=== PATIENT | female | born 1955 | race Caucasian/White ===

== ENCOUNTER 2016-09-01 17:25 | Emergency (ER) | payer MEDICARE, OTHER ==
--- NOTE | 2016-09-01 17:52 | ED ---
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 We did discuss multiple risk factors for things with smoking she denies any cough or phlegm production fevers chills or sweats she was taking aspirin daily for years she states because a chronic left-sided headache. She states she was never CAT scan she is currently seeing a neurologist getting worked up all over. MD Complaint: chest pain - Related Data Home Medications Medication Instructions Recorded Confirmed risperiDONE [risperiDONE] 0.5 mg PO HS 12/17/15 09/01/16 Ascorbic Acid [Vitamin C] 500 mg PO DAILY 09/01/16 09/01/16 Baclofen [Lioresal] 10 mg PO BID 09/01/16 09/01/16 Cholecalciferol [Vitamin D3] 1,000 unit PO DAILY 09/01/16 09/01/16 Glucosamine Sulfate 500 mg PO DAILY 09/01/16 09/01/16 Lutein 10 mg PO DAILY 09/01/16 09/01/16 Multivit-Min/Fe Fum/FA/Vit K 1 cap PO DAILY 09/01/16 09/01/16 [Women's Multivatimin] [place]-3 Fatty Acids/Fish Oil [Fish 1 cap PO DAILY 09/01/16 09/01/16 Oil 1,000 mg Softgel] PARoxetine HCL 30 mg PO HS 09/01/16 09/01/16 Topiramate [Topamax] 25 mg PO BID 09/01/16 09/01/16 Vitamin B Complex 1 cap PO DAILY 09/01/16 09/01/16 Previous Rx's Medication Instructions Recorded predniSONE 20 mg PO BID #10 tab 09/01/16 Allergies Allergy/AdvReac Type Severity Reaction Status Date / Time Penicillins Allergy Rash/Hives Verified 09/01/16 17:51 Review of Systems ROS Statement: Those systems with pertinent positive or pertinent negative responses have been documented in the HPI. ROS Other: All systems not noted in ROS Statement are negative. EKG Findings - EKG Results: EKG: interpreted by ADRIA, sinus rhythm (Sinus rhythm a rate of 59 MN interval 142 QRS duration 88 daily since QTC of 400/396 sinus bradycardia no acute ST-T wave changes. Some artifact is present) Past Medical History Past Medical History: COPD History of Any Multi-Drug Resistant Organisms: None Reported Past Surgical History: Appendectomy, Hysterectomy Past Psychological History: Bipolar Smoking Status: Current every day smoker Past Alcohol Use History: None Reported Past Drug Use History: None Reported General Exam - General Exam Comments Initial Comments: This is a well-developed well-nourished awake alert oriented 3 female Limitations: no limitations General appearance: alert, in no apparent distress Head exam: Present: atraumatic, normocephalic, normal inspection Eye exam: Present: normal appearance, PERRL, EOMI. Absent: scleral icterus, conjunctival injection, periorbital swelling ENT exam: Present: normal exam, mucous membranes moist Neck exam: Present: normal inspection. Absent: tenderness, meningismus, lymphadenopathy Respiratory exam: Present: normal lung sounds bilaterally, chest wall tenderness (Some reproducible tennis palpation along the mid left sternal costal border). Absent: respiratory distress, wheezes, rales, rhonchi, stridor Cardiovascular Exam: Present: regular rate, normal rhythm, normal heart sounds. Absent: systolic murmur, diastolic murmur, rubs, gallop, clicks GI/Abdominal exam: Present: soft, normal bowel sounds. Absent: distended, tenderness, guarding, rebound, rigid Extremities exam: Present: normal inspection, full ROM, normal capillary refill. Absent: tenderness, pedal edema, joint swelling, calf tenderness Back exam: Present: normal inspection Neurological exam: Present: alert, oriented X3, CN II-XII intact Psychiatric exam: Present: normal affect, normal mood Skin exam: Present: warm, dry, intact, normal color. Absent: rash Course Vital Signs 09/01/16 09/01/16 09/01/16 17:30 17:47 17:48 Temperature 98 F Pulse Rate 73 Pulse Rate [ 59 L [employer] ] Respiratory 16 Rate Blood Pressure 92/53 119/66 O2 Sat by Pulse 95 Oximetry 09/01/16 09/01/16 17:52 18:44 Temperature 97.8 F Pulse Rate 53 L Pulse Rate [ [employer] ] Respiratory 18 16 Rate Blood Pressure 106/69 O2 Sat by Pulse 97 Oximetry Chest Pain MDM - MDM I did review the imaging reports and viewed the films x-ray of the chest as negative CT the brain is negative for acute findings patient is feeling improved the presentation is consistent with chest wall pain. I did have a long discussion with the patient lives seen 3.2 minutes regarding smoking cessation and need to continue output she stated earlier that she would stop smoking. She is a follow-up with her doctor return when necessary we'll place a short course of steroids for the inflammation she sustained way from nonsteroidals at this point Disposition Clinical Impression: Chest wall syndrome, Costalchondritis, Smoking Disposition: HOME SELF-CARE Condition: Good Instructions: Costochondritis (ED), How to Stop Smoking (ED) Prescriptions: predniSONE 20 mg PO BID #10 tab
[2016-09-01 17:57] LABS: Basophils # (A) 0.1 k/uL (0-0.2); Basophils % (A) 1 %; CH 30.9; CHCM 32.5; Eosinophils # (A) 0.2 k/uL (0-0.7); Eosinophils % (A) 2 %; HCT 43.1 % (34.0-46.0); HDW 2.54; HGB 13.9 gm/dL (11.4-16.0); Luc # (Auto) 0.18; Luc % (Auto) 1; Lymphocytes # (A) 4.1 k/uL (1.0-4.8); Lymphocytes % (A) 31 %; MCH 30.7 pg (25.0-35.0); MCHC 32.2 g/dL (31.0-37.0); MCV 95.6 fL (80.0-100.0); Mean Platelet Volume 7.8; Monocytes # (A) 0.6 k/uL (0-1.0); Monocytes % (A) 4 %; Neutrophils % (A) 61 %; RBC 4.51 m/uL (3.80-5.40); RDW 13.5 % (11.5-15.5); WBC 13.1 k/uL (3.8-10.6); WBC (Perox) 13.59
[2016-09-01 18:04] LABS: Partial Thromboplastin Time 24.2 sec (22.0-30.0); Prothrombin Time 10.1 sec (9.0-12.0)
[2016-09-01 18:07] LABS: ALT 38 U/L (9-52); AST 23 U/L (14-36); Alkaline Phosphatase 60 U/L (38-126); Amylase 74 U/L (30-110); Anion Gap 7 mmol/L; Blood Urea Nitrogen 13 mg/dL (7-17); Calcium 9.8 mg/dL (8.4-10.2); Carbon Dioxide 27 mmol/L (22-30); Chloride 111 mmol/L (98-107); Glucose 104 mg/dL (74-99); Magnesium 1.7 mg/dL (1.6-2.3); Non-African American GFR(MDRD) >60 (>60 ml/min/1.73 sqM); Potassium 4.4 mmol/L (3.5-5.1); Sodium 145 mmol/L (137-145); Total Bilirubin 0.2 mg/dL (0.2-1.3); Total Protein 6.8 g/dL (6.3-8.2)
[2016-09-01 18:14] LABS: Creatine Kinase 35 U/L (30-135)
[2016-09-01 18:27] LABS: Creatine Kinase MB 0.4 ng/mL (0.0-2.4); Troponin I <0.012 ng/mL (0.000-0.034)
--- NOTE | 2016-09-01 18:40 | CT ---
EXAMINATION TYPE: CT brain wo con DATE OF EXAM: 09/01/2016 6:09 PM COMPARISON: NONE HISTORY: Left sided headache with dizziness. CT DLP: 1024.00 mGycm Automated exposure control for dose reduction was used. FINDINGS: The ventricles and sulci are normal for age. There is no mass effect or midline shift. There is no si gn of intracranial hemorrhage. The calvarium is intact. IMPRESSION: Negative unenhanced head CT scan.
--- NOTE | 2016-09-01 18:46 | XR ---
EXAMINATION TYPE: XR chest 2V DATE OF EXAM: 09/01/2016 6:09 PM COMPARISON: 10/28/2015 HISTORY: Chest pain TECHNIQUE: Frontal and lateral views of the chest are obtained. FINDINGS: Heart and mediastinum are normal. Lungs are clear of infiltrate. There is no heart failure . There are no hilar masses. There are chest leads. Bony thorax appears intact. IMPRESSION: No active cardiopulmonary disease. No change.
[2016-09-01 18:47] VITALS: BP 106/69; PULSE 53; RESP 16; TEMP 97.8
== END 2016-09-01 19:01 | disposition home or self-care (01) ==
LOC: EC 17:25
DX: R07.1 Chest pain on breathing (principal); M94.0 Chondrocostal junction syndrome [Tietze]; J44.9 Chronic obstructive pulmonary disease, unspecified; F17.200 Nicotine dependence, unspecified, uncomplicated; Z79.899 Other long term (current) drug therapy; Z88.0 Allergy status to penicillin
CPT/HCPCS: 36415; 70450; 71020; 80053; 82150; 82550; 82553; 83690; 83735; 83880; 84484; 85025; 85610; 85730; 93005; 99285

== ENCOUNTER 2017-09-17 18:19 | Observation (INO) | payer MEDICARE, OTHER ==
--- NOTE | 2017-09-17 18:37 | ED ---
General Adult HPI - General Chief complaint: Chest Pain Stated complaint: Chest pain Time Seen by Provider: 09/17/17 18:30 Source: patient, RN notes reviewed, old records reviewed Mode of arrival: wheelchair Limitations: no limitations - History of Present Illness Initial comments: 61-year-old female presents for evaluation of chest pain. Patient has had intermittent chest pain for the past one week. It has been worse over the past 2 days. Pain is worse with exertion, she describes it as a dull substernal pain. Denies sharp pain. She does also have an associated pain between her scapula. Patient denies nausea or vomiting. Denies abdominal pain. Denies significant shortness of breath. Denies cough or fever. She does state that approximately 2 weeks ago she had a flulike illness with cough and fever. This is completely resolved. Patient has no known history of coronary artery disease. She is a current smoker. - Related Data Home Medications Medication Instructions Recorded Confirmed risperiDONE [risperiDONE] 0.5 mg PO HS 12/17/15 09/17/17 PARoxetine HCL 30 mg PO HS 09/01/16 09/17/17 Ascorbic Acid [Vitamin C] 500 mg PO HS 09/17/17 09/17/17 Cholecalciferol [Vitamin D3] 1,000 unit PO HS 09/17/17 09/17/17 Glucosam/Teofilo-Msm1/C/Ricky/Bosw 1 tab PO HS 09/17/17 09/17/17 [Glucosamine-Chondroitin Tablet] Multivitamins, Thera [Multivitamin 1 tab PO HS 09/17/17 09/17/17 (formulary)] Vitamin B Complex 1 cap PO HS 09/17/17 09/17/17 Allergies Allergy/AdvReac Type Severity Reaction Status Date / Time Penicillins Allergy Rash/Hives Verified 09/17/17 18:49 Review of Systems ROS Statement: Those systems with pertinent positive or pertinent negative responses have been documented in the HPI. ROS Other: All systems not noted in ROS Statement are negative. Past Medical History Past Medical History: COPD History of Any Multi-Drug Resistant Organisms: None Reported Past Surgical History: Appendectomy, Hysterectomy Past Psychological History: Bipolar Smoking Status: Current every day smoker Past Alcohol Use History: None Reported Past Drug Use History: None Reported General Exam Limitations: no limitations General appearance: alert, in no apparent distress Head exam: Present: atraumatic, normocephalic Eye exam: Present: normal appearance, PERRL ENT exam: Present: normal exam Neck exam: Present: normal inspection. Absent: tenderness, meningismus Respiratory exam: Present: normal lung sounds bilaterally, rales ( rales and rhonchi at lung bases). Absent: respiratory distress Cardiovascular Exam: Present: regular rate, normal rhythm GI/Abdominal exam: Present: soft. Absent: distended, tenderness Extremities exam: Present: normal inspection, full ROM, normal capillary refill. Absent: pedal edema Neurological exam: Present: alert, oriented X3, CN II-XII intact. Absent: motor sensory deficit Psychiatric exam: Present: normal affect, normal mood Skin exam: Present: warm, dry, intact. Absent: cyanosis, diaphoretic Course Vital Signs 09/17/17 18:25 Temperature 98.2 F Pulse Rate 70 Respiratory 20 Rate Blood Pressure 120/58 O2 Sat by Pulse 97 Oximetry EKG Findings - EKG Comments: EKG Findings:: EKG shows normal sinus rhythm, ventricular rate 67, NC interval 146, QRS duration 82, QTC 41, no signs of ST segment elevation or depression no T-wave abnormality Medical Decision Making - Medical Decision Making 60-year-old female presenting with chief complaint of chest pain. His been ongoing for a week. Patient did have a cough syrup. This may be muscular skeletal chest pain however patient is a smoker, and does have risk factors for CAD. EKG nonischemic, chest x-ray negative for acute findings, white blood cell count 10.4 which is normal, hemoglobin 13.5, which was normal, initial troponin is negative. Patient was placed in observation for serial cardiac enzymes and cardiology consult. - Lab Data Result diagrams: 09/17/17 18:40 09/17/17 18:40 Lab Results 09/17/17 09/17/17 09/17/17 Range/Units 18:40 18:40 18:40 WBC 10.4 (3.8-10.6) k/uL RBC 4.47 (3.80-5.40) m/uL Hgb 13.5 (11.4-16.0) gm/dL Hct 41.5 (34.0-46.0) % MCV 92.8 (80.0-100.0) fL MCH 30.1 (25.0-35.0) pg MCHC 32.5 (31.0-37.0) g/dL RDW 12.9 (11.5-15.5) % Plt Count 309 (150-450) k/uL Neutrophils % 45 % Lymphocytes % 45 % Monocytes % 6 % Eosinophils % 2 % Basophils % 1 % Neutrophils # 4.7 (1.3-7.7) k/uL Lymphocytes # 4.7 (1.0-4.8) k/uL Monocytes # 0.6 (0-1.0) k/uL Eosinophils # 0.2 (0-0.7) k/uL Basophils # 0.1 (0-0.2) k/uL PT (9.0-12.0) sec INR (<1.2) APTT (22.0-30.0) sec Sodium 143 (137-145) mmol/L Potassium 4.5 (3.5-5.1) mmol/L Chloride 107 (98-107) mmol/L Carbon Dioxide 28 (22-30) mmol/L Anion Gap 8 mmol/L BUN 18 H (7-17) mg/dL Creatinine 0.70 (0.52-1.04) mg/dL Est GFR (MDRD) Af Amer >60 (>60 ml/min/1.73 sqM) Est GFR (MDRD) Non-Af >60 (>60 ml/min/1.73 sqM) Glucose 95 (74-99) mg/dL Calcium 9.7 (8.4-10.2) mg/dL Magnesium 1.8 (1.6-2.3) mg/dL Total Bilirubin <0.1 L (0.2-1.3) mg/dL AST 24 (14-36) U/L ALT 30 (9-52) U/L Alkaline Phosphatase 64 (38-126) U/L Total Creatine Kinase 49 (30-135) U/L CK-MB (CK-2) 0.6 (0.0-2.4) ng/mL CK-MB (CK-2) Rel Index 1.2 Troponin I <0.012 (0.000-0.034) ng/mL NT-Pro-B Natriuret Pep pg/mL Total Protein 7.0 (6.3-8.2) g/dL Albumin 3.7 (3.5-5.0) g/dL Lipase 271 (23-300) U/L 09/17/17 09/17/17 Range/Units 18:40 18:40 WBC (3.8-10.6) k/uL RBC (3.80-5.40) m/uL Hgb (11.4-16.0) gm/dL Hct (34.0-46.0) % MCV (80.0-100.0) fL MCH (25.0-35.0) pg MCHC (31.0-37.0) g/dL RDW (11.5-15.5) % Plt Count (150-450) k/uL Neutrophils % % Lymphocytes % % Monocytes % % Eosinophils % % Basophils % % Neutrophils # (1.3-7.7) k/uL Lymphocytes # (1.0-4.8) k/uL Monocytes # (0-1.0) k/uL Eosinophils # (0-0.7) k/uL Basophils # (0-0.2) k/uL PT 9.8 (9.0-12.0) sec INR 1.0 (<1.2) APTT 23.5 (22.0-30.0) sec Sodium (137-145) mmol/L Potassium (3.5-5.1) mmol/L Chloride (98-107) mmol/L Carbon Dioxide (22-30) mmol/L Anion Gap mmol/L BUN (7-17) mg/dL Creatinine (0.52-1.04) mg/dL Est GFR (MDRD) Af Amer (>60 ml/min/1.73 sqM) Est GFR (MDRD) Non-Af (>60 ml/min/1.73 sqM) Glucose (74-99) mg/dL Calcium (8.4-10.2) mg/dL Magnesium (1.6-2.3) mg/dL Total Bilirubin (0.2-1.3) mg/dL AST (14-36) U/L ALT (9-52) U/L Alkaline Phosphatase (38-126) U/L Total Creatine Kinase (30-135) U/L CK-MB (CK-2) (0.0-2.4) ng/mL CK-MB (CK-2) Rel Index Troponin I (0.000-0.034) ng/mL NT-Pro-B Natriuret Pep 43 pg/mL Total Protein (6.3-8.2) g/dL Albumin (3.5-5.0) g/dL Lipase (23-300) U/L Disposition Clinical Impression: Chest pain Disposition: ADMITTED IP TO THIS HOSP Condition: Stable Referrals: Hina Watkins MD [Primary Care Provider] - 1-2 days Decision to Admit Reason: Admit from EC Decision Date: 09/17/17 Decision Time: 21:32
[2017-09-17 19:33] LABS: Basophils # (A) 0.1 k/uL (0-0.2); Basophils % (A) 1 %; Eosinophils # (A) 0.2 k/uL (0-0.7); Eosinophils % (A) 2 %; HCT 41.5 % (34.0-46.0); HGB 13.5 gm/dL (11.4-16.0); Lymphocytes # (A) 4.7 k/uL (1.0-4.8); Lymphocytes % (A) 45 %; MCH 30.1 pg (25.0-35.0); MCHC 32.5 g/dL (31.0-37.0); MCV 92.8 fL (80.0-100.0); Mean Platelet Volume 7.2; Monocytes # (A) 0.6 k/uL (0-1.0); Monocytes % (A) 6 %; Neutrophils # (A) 4.7 k/uL (1.3-7.7); Neutrophils % (A) 45 %; Platelet Count 309 k/uL (150-450); RBC 4.47 m/uL (3.80-5.40); RDW 12.9 % (11.5-15.5); WBC 10.4 k/uL (3.8-10.6)
--- NOTE | 2017-09-17 19:41 | XR ---
EXAMINATION: XR chest 2V DATE AND TIME: 09/17/2017 7:07 PM ORDERING PROVIDER: Juve Caba CLINICAL INDICATION: Chest Pain TECHNIQUE: PA and lateral COMPARISON: 09/01/2016 DESCRIPTION: The overlying soft tissues are very prominent, and this obscures analysis of the lung pa renchyma and pulmonary vasculature. Given this factor, the lungs appear to be clear. The pleural spaces are negative. The cardiac silhouette is not enlarged. The mediastinal and pleural silhouettes are unremarkable. The skeletal structures are intact without focal findings. The soft tissues are unremarkable. IMPRESSION: NO ACUTE PROCESS.
[2017-09-17 19:44] LABS: Partial Thromboplastin Time 23.5 sec (22.0-30.0); Prothrombin Time 9.8 sec (9.0-12.0)
[2017-09-17 19:49] LABS: ALT 30 U/L (9-52); AST 24 U/L (14-36); Albumin 3.7 g/dL (3.5-5.0); Alkaline Phosphatase 64 U/L (38-126); Anion Gap 8 mmol/L; Blood Urea Nitrogen 18 mg/dL (7-17); Calcium 9.7 mg/dL (8.4-10.2); Carbon Dioxide 28 mmol/L (22-30); Chloride 107 mmol/L (98-107); Glucose 95 mg/dL (74-99); Lipase 271 U/L (23-300); Magnesium 1.8 mg/dL (1.6-2.3); Potassium 4.5 mmol/L (3.5-5.1); Sodium 143 mmol/L (137-145); Total Bilirubin <0.1 mg/dL (0.2-1.3)
[2017-09-17 19:57] LABS: Creatine Kinase 49 U/L (30-135)
[2017-09-17 20:10] LABS: Creatine Kinase MB 0.6 ng/mL (0.0-2.4); Troponin I <0.012 ng/mL (0.000-0.034)
[2017-09-17] MEDS ORDERED: ASPIRIN 325 MG TAB PO STA (20:11)
[2017-09-17] MEDS ORDERED: ACETAMINOPHEN TAB 325 MG TAB PO PRN (21:28)
[2017-09-17] MEDS ORDERED: IBUPROFEN 400 MG TAB PO PRN (21:28)
[2017-09-17] MEDS ORDERED: NALOXONE 0.4 MG/ML 1 ML VIAL IV PRN (21:28)
[2017-09-17] MEDS ORDERED: NITROGLYCERIN SL TABS 0.4 MG TAB SUBLINGUAL PRN (21:31)
[2017-09-18 01:30] LABS: Creatine Kinase 48 U/L (30-135)
[2017-09-18 01:43] LABS: Creatine Kinase MB 0.5 ng/mL (0.0-2.4); Troponin I <0.012 ng/mL (0.000-0.034)
[2017-09-18] MEDS ORDERED: ACETAMINOPHEN TAB 325 MG TAB PO STA (06:35)
[2017-09-18 07:05] LABS: Creatine Kinase 44 U/L (30-135)
[2017-09-18 07:17] LABS: Creatine Kinase MB 0.5 ng/mL (0.0-2.4); Troponin I <0.012 ng/mL (0.000-0.034)
--- NOTE | 2017-09-18 09:31 | P.CRDCN ---
History of Present Illness Consult date: 09/18/17 Chief complaint: Chest pain History of present illness: This is a pleasant 61-year-old female patient with no comorbid conditions of coronary artery disease or diabetes or hypertension or dyslipidemia but significant history of smoking presented to the emergency room complaining of chest discomfort. She was in her usual state of health until about a week ago when she started experiencing intermittent episodes of chest discomfort, over the left side of the chest, as a dull kind of discomfort, and sometimes radiate to the left arm and neck. She stated that the discomfort is of variable duration. Sometimes exertional and sometimes resting. She noticed some shortness of breath and sweating with the chest discomfort yesterday. The EKG showed sinus rhythm without any significant ST or T-wave abnormalities. 2 sets of cardiac enzymes were checked and came in to be unremarkable. The chest x-ray came in to be unremarkable and without any acute abnormalities. 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 Beside that she has no risk factors for CAD like diabetes or hypertension or dyslipidemia. Past Medical History Past Medical History: COPD History of Any Multi-Drug Resistant Organisms: None Reported Past Surgical History: Appendectomy, Hysterectomy Past Psychological History: Bipolar Smoking Status: Current every day smoker Past Alcohol Use History: None Reported Past Drug Use History: None Reported Medications and Allergies Home Medications Medication Instructions Recorded Confirmed Type risperiDONE [risperiDONE] 0.5 mg PO HS 12/17/15 09/17/17 History PARoxetine HCL 30 mg PO HS 09/01/16 09/17/17 History Ascorbic Acid [Vitamin C] 500 mg PO HS 09/17/17 09/17/17 History Cholecalciferol [Vitamin D3] 1,000 unit PO HS 09/17/17 09/17/17 History Glucosam/Teofilo-Msm1/C/Ricky/Bosw 1 tab PO HS 09/17/17 09/17/17 History [Glucosamine-Chondroitin Tablet] Multivitamins, Thera [Multivitamin 1 tab PO HS 09/17/17 09/17/17 History (formulary)] Vitamin B Complex 1 cap PO HS 09/17/17 09/17/17 History Allergies Allergy/AdvReac Type Severity Reaction Status Date / Time Penicillins Allergy Rash/Hives Verified 09/17/17 18:49 Physical Exam Vitals: Vital Signs Temp Pulse Resp BP Pulse Ox 09/18/17 06:25 60 17 119/58 97 09/18/17 05:35 58 L 16 105/60 97 09/18/17 04:30 60 18 100/55 98 09/18/17 03:33 65 18 108/56 95 09/18/17 00:42 66 17 113/54 97 09/17/17 21:25 74 16 134/60 94 L 09/17/17 18:25 98.2 F 70 20 120/58 97 Intake and Output 09/17/17 09/18/17 09/18/17 22:59 06:59 14:59 Other: Weight 67.132 kg - Constitutional General appearance: no acute distress - Respiratory Respiratory: bilateral: CTA - Cardiovascular Rhythm: regular Heart sounds: normal: S1, S2 Results 09/17/17 18:40 09/17/17 18:40 Cardiac Enzymes 09/17/17 09/17/17 09/18/17 Range/Units 18:40 18:40 00:44 AST 24 (14-36) U/L CK-MB (CK-2) 0.6 0.5 (0.0-2.4) ng/mL Troponin I <0.012 <0.012 (0.000-0.034) ng/mL 09/18/17 Range/Units 06:15 AST (14-36) U/L CK-MB (CK-2) 0.5 (0.0-2.4) ng/mL Troponin I <0.012 (0.000-0.034) ng/mL Coagulation 09/17/17 Range/Units 18:40 PT 9.8 (9.0-12.0) sec APTT 23.5 (22.0-30.0) sec CBC 09/17/17 Range/Units 18:40 WBC 10.4 (3.8-10.6) k/uL RBC 4.47 (3.80-5.40) m/uL Hgb 13.5 (11.4-16.0) gm/dL Hct 41.5 (34.0-46.0) % Plt Count 309 (150-450) k/uL Comprehensive Metabolic Panel 09/17/17 Range/Units 18:40 Sodium 143 (137-145) mmol/L Potassium 4.5 (3.5-5.1) mmol/L Chloride 107 (98-107) mmol/L Carbon Dioxide 28 (22-30) mmol/L BUN 18 H (7-17) mg/dL Creatinine 0.70 (0.52-1.04) mg/dL Glucose 95 (74-99) mg/dL Calcium 9.7 (8.4-10.2) mg/dL AST 24 (14-36) U/L ALT 30 (9-52) U/L Alkaline Phosphatase 64 (38-126) U/L Total Protein 7.0 (6.3-8.2) g/dL Albumin 3.7 (3.5-5.0) g/dL Current Medications Generic Name Dose Route Start Last Admin Trade Name Freq PRN Reason Stop Dose Admin Acetaminophen 650 mg 09/17/17 21:28 Tylenol Tab PO Q6HR PRN Mild Pain or Fever > 100.5 Aspirin 325 mg 09/18/17 09:00 Aspirin PO DAILY MANDY Ibuprofen 400 mg 09/17/17 21:28 Motrin PO Q6HR PRN Mild Pain or Fever > 100.5 Naloxone HCl 0.2 mg 09/17/17 21:28 Narcan IV Q2M PRN Opioid Reversal Nitroglycerin 0.4 mg 09/17/17 21:31 Nitrostat SUBLINGUAL Q10M PRN Chest Pain Intake and Output 09/17/17 09/18/17 09/18/17 22:59 06:59 14:59 Other: Weight 67.132 kg 09/17/17 18:40 09/17/17 18:40 Assessment and Plan Assessment: Assessment #1 intermittent episodes of chest discomfort #2 significant history of smoking Plan #1 rule out an acute coronary event #2 obtain an echocardiogram was Doppler #3 follow-up with the third set of celiac of enzymes #4 follow-up with the patient. Thank you for allowing us participate in her care
[2017-09-18] MEDS ORDERED: SODIUM CHLORIDE 0.9% 1,000 ML in EMPTY BAG 1 BAG IV ONE (12:05)
[2017-09-18] MEDS ORDERED: ALPRAZolam 0.5 MG TAB PO PRN (12:05)
[2017-09-18] MEDS ORDERED: ALPRAZolam 0.25 MG TAB PO PRN (12:05)
[2017-09-18] MEDS ORDERED: ATORVASTATIN 80 MG TAB PO STA (12:09)
[2017-09-18] MEDS ORDERED: IV FLUID CONTINUATION 600 ML IV ONE (13:05)
[2017-09-18] MEDS ORDERED: MIDAZOLAM 2 MG/2 ML VIAL ONE (13:12)
[2017-09-18] MEDS ORDERED: LIDOCAINE 2% INJ 20 MG/ML (20 ML MDV) ONE (13:12)
[2017-09-18] MEDS ORDERED: VERAPAMIL 2.5 MG/ML 2 ML AMP ONE ×2 (13:12→13:21)
[2017-09-18] MEDS ORDERED: MIDAZOLAM 2 MG/2 ML VIAL IVP ONE (13:16)
[2017-09-18] MEDS ORDERED: LIDOCAINE 2% INJ 20 MG/ML SQ ONE (13:17)
[2017-09-18] MEDS: VERAPAMIL SYRINGE (5 MG/10 ML) INTRAARTER ONE ×2 (13:19→13:27)
[2017-09-18] MEDS ORDERED: HEPARIN SODIUM 1,000 UN/ML (10ML VL) ONE (13:21)
[2017-09-18] MEDS ORDERED: HEPARIN SODIUM 1,000 UN/ML (10ML VL) IV ONE (13:22)
[2017-09-18] MEDS ORDERED: IOHEXOL 350 MG/ML 125ML BOTTLE INJ ONE (13:27)
[2017-09-18] MEDS ORDERED: HYDROmorphone 2 MG/ML 1 ML SYRINGE ONE (13:33)
[2017-09-18] MEDS ORDERED: HYDROmorphone 2 MG/ML 1 ML SYRINGE IVP ONE (13:34)
[2017-09-18] MEDS ORDERED: RX INFO: IV CONTRAST WAS GIVEN 1 EACH MISC MISCELLANE PRN (13:35)
[2017-09-18] MEDS ORDERED: SODIUM CHLORIDE 0.9% 1,000 ML IV SCH (13:45)
[2017-09-18] MEDS ORDERED: fentaNYL (PF) 50 MCG/ML 2 ML AMP IVP PRN (13:51)
--- NOTE | 2017-09-18 15:10 | CC ---
CARDIAC CATHETERIZATION REPORT DATE OF SERVICE: 09/18/2017 PERFORMING PHYSICIAN: Sudhakar Granados MD, [place]. PROCEDURE PERFORMED: 1. Selective right and left coronary angiogram. 2. Left heart catheterization. INDICATION: This is a pleasant 61-year-old female patient who is a smoker who presented to the hospital with chest discomfort and continues to have ongoing discomfort. In view of that, I recommended proceeding with a heart catheterization. APPROACH: Right radial artery. COMPLICATION: None. LEVEL OF SEDATION: Moderate with sedation length of 14 minutes. PROCEDURE DESCRIPTION: After obtaining AN informed consent, the patient was brought to the [facility]. The right radial artery was cannulated using micropuncture technique and a micropuncture wire passed easily, then I placed a 6-Portuguese sheath in the right radial artery and I gave the patient after that 2 mg of verapamil IA and 8000 units of heparin IV. After that, I did selective right and left coronary angiogram using JR4 and JL3.5 catheters. I did left heart catheterization using the JR4 catheter which flipped into the LV then I did pullback per protocol. The procedure was completed without any complication. SELECTIVE CORONARY ANGIOGRAM: 1. The right coronary artery is a large caliber vessel and it is a dominant vessel. The RCA has mild disease in the proximal portion, but it is normal in the mid and distal portion. Distally bifurcates into PDA and PLV branches, both are angiographically normal. 2. The left main is angiographically normal. It bifurcates into the left circumflex and left anterior descending artery. 3. The left circumflex is a large caliber vessel. It is a nondominant vessel but the proximal circumflex is angiographically normal. The mid circ is normal and gives rise into a large OM branch which seems to be angiographically normal. The circ distally is normal. 4. Left anterior descending artery;. The proximal LAD is normal. It gives rise into the first diagonal branch which seems to be angiographically normal. The mid LAD and distal LAD are angiographically normal. HEMODYNAMICS: The left ventricular end-diastolic pressure was 11 mmHg and no gradient was identified across the aortic valve. CONCLUSION: Mild nonobstructive coronary artery disease. POSTPROCEDURE MANAGEMENT: Maximize medical treatment and follow up with the patient. MMODL / IJN: [id number] /
[2017-09-18] MEDS: ASPIRIN 325 MG TAB PO SCH (17:17)
--- NOTE | 2017-09-18 20:34 | LTR ---
DATE OF SERVICE: September 18, 2017. Dear Dr. Watkins: Ms. Trina Auguste presented to the hospital complaining of chest discomfort and she continues to have ongoing chest discomfort. In view of that, I recommended proceeding with a heart catheterization. She underwent a heart catheterization and that revealed mild nonobstructive coronary artery disease. The procedure was performed without any complication. I want to thank you for allowing me to participate in her care and please do not hesitate to call if you have any questions or concerns. Sincerely, MMFANTAL / IJN: [id number] /
--- NOTE | 2017-09-18 21:55 | HP ---
HISTORY AND PHYSICAL DATE OF SERVICE: 09/18/2017. CHIEF COMPLAINT: Chest pain. BRIEF HISTORY: This patient is a 61-year-old female patient who presented to ED with a complaint of left-sided chest pain which was left-sided and substernal chest pain which was intermittent in nature, started for about 2 days ago. According to patient, pain became worse with exertion and mostly dull in nature. There was also some pain in the upper back between the scapular area. There was no known nausea, vomiting or diaphoresis. No abdominal pain. No shortness of breath. The patient claims that she had a flu-like illness with cough and fever about 2 weeks ago and that completely resolved and initially she thought she was having repeated attack, but then the chest pain resumed, so she decided to come to the ER. She does have a longstanding history of smoking. PAST MEDICAL HISTORY: Significant for a COPD, bipolar disorder. Tobacco abuse. PAST SURGICAL HISTORY: Significant for appendectomy and hysterectomy. SOCIAL HISTORY: Patient has no history of smoking. No history of alcohol or IV drug abuse. She does have a long standing history of smoking. ALLERGIC: PENICILLIN. MEDICATIONS: Patient is on Risperdal 0.5 mg p.o. q.h.s., Paxil 30 mg p.o. q.h.s. Ascorbic acid 500 mg p.o. q.h.s., vitamin D3 1000 units p.o. q.h.s., multivitamins 1 tab p.o. q.h.s., vitamin B complex 1 p.o. q.h.s. REVIEW OF SYSTEM: General: Patient denies any unexplained weight loss, anorexia, or any fever or chills. HEENT no hearing or vision loss. Respiratory: Patient denies any shortness of breath or wheezing. Cardiovascular as described above. Abdomen/GI patient denies any nausea,vomiting or diarrhea. Genitourinary: No dysuria. No hematuria. Extremities: No swelling or redness or pain. Skin: Patient denies any pigmentation or rashes. Rheumatological: Patient denies any joint swelling or deformities. Lymphatics: Denies any lymph node enlargement. Hematology: Patient denies any bleeding disorders or coagulation disorders. No anemia. Musculoskeletal: No joint deformities. The rest of 14-point review of system is unremarkable. PHYSICAL EXAMINATION: The patient is awake, alert, oriented x3. VITAL SIGNS: Temperature of 97.6, pulse 81, respiration 18, blood pressure 148/ 64, O2 saturation 98% on 2 L. HEENT atraumatic, normocephalic. Pupils are equal and reactive to light. Extraocular movements intact. Buccal mucosa is fair. NECK: Supple. No goiter or lymphadenopathy. JVD is negative. No carotid bruit heard. Respiratory: Lungs are clear to auscultate. No rales, rhonchi, or wheezes. CARDIOVASCULAR: Heart is regular rate and rhythm without any murmurs or gallop rhythm. GI/ABDOMEN: Soft, nontender, nondistended. No organomegaly. No guarding or rigidity. Bowel sounds are positive. Genitourinary: No pelvic tenderness or discomfort. EXTREMITIES: No edema, clubbing or cyanosis. Pulses are palpable 2+. Neurological examination: The patient is awake, alert, oriented x3. No gross motor or sensory deficits. Cranial nerves 2-3 are grossly intact. MUSCULOSKELETAL: Patient moves all 4 extremities. No gross swelling or deformity of any joints. Skin is warm, dry, and intact. Lymphatics: No palpable lymph nodes in cervical or axillary area. Psych fair judgment, affect, and mood. LABORATORY DATA: CBC, white blood count of 10.4, hemoglobin 13.5, hematocrit 41.5, and platelet count of 309. PT 9.8, INR 1.06. Chemical profile sodium 143, potassium 4.5, chloride 107, bicarb 28, BUN 18, creatinine 0.7. ASSESSMENT: 1. Chest pain, rule out acute coronary syndrome. 2. Tobacco abuse. 3. Mild renal insufficiency. 4. Bipolar disorder. PLAN: Rule out acute coronary syndrome. 2D echocardiogram with Doppler is ordered. Monitor cardiac enzymes 3 sets to rule out acute coronary syndrome. Consult Cardiology. Patient is scheduled for heart catheterization. MMODL / IJN: [id number] / MTDD
[2017-09-19] MEDS ORDERED: ACETAMINOPHEN TAB 325 MG TAB ONE (04:15)
[2017-09-19 07:16] VITALS: RESP 16
[2017-09-19] MEDS: ASPIRIN 325 MG TAB PO SCH (08:34)
--- NOTE | 2017-09-19 11:14 | ECHOF ---
Referral Reason:chest pain MEASUREMENTS -------- HEIGHT: 157.5 cm WEIGHT: 67.1 kg BP: 98/49 RVIDd: 2.5 cm (< 3.3) IVSd: 1.2 cm (0.6 - 1.1) LVIDd: 4.3 cm (3.9 - 5.3) LVPWd: 1.1 cm (0.6 - 1.1) IVSs: 1.4 cm LVIDs: 2.4 cm LVPWs: 1.5 cm LAESV Index (A-L): 28.67 ml/m Ao Diam: 3.2 cm (2.0 - 3.7) AV Cusp: 1.8 cm (1.5 - 2.6) LA Diam: 3.1 cm (2.7 - 3.8) EPSS: 0.4 cm MV E Justin: 0.76 m/s MV DecT: 282 ms MV A Justin: 0.86 m/s MV E/A Ratio: 0.89 AR PHT: 760 ms RAP: 5.00 mmHg RVSP: 40.76 mmHg MV EF SLOPE: 94.68 mm/s (70 - 150) MV EXCURSION: 1.68 cm (> 18.000) FINDINGS -------- Sinus rhythm. This was a technically good study. The left ventricular size is normal. There is mild concentric left ventricular hypertrophy. Overa ll left ventricular systolic function is normal with, an EF between 55 - 60 %. The right ventricle is normal in size and function. Normal LA size by volume 22+/-6 ml/m2. RA appears enlarged. Aortic valve is trileaflet and is mildly thickened. There is mild aortic regurgitation. There is no evidence of aortic stenosis. The mitral valve leaflets are mildly thickened. There is trace to mild mitral regurgitation. Trace tricuspid regurgitation present. Right ventricular systolic pressure is normal at < 35 mmHg. There is no evidence of pulmonary hypertension. Trace/mild (physiologic) pulmonic regurgitation. The aortic root size is normal. Normal inferior vena cava with normal inspiratory collapse consistent with estimated right atrial pre ssure of 5 mmHg. The pericardium is normal. There is no pericardial effusion. CONCLUSIONS -------- 1. Sinus rhythm. 2. This was a technically good study. 3. The left ventricular size is normal. 4. There is mild concentric left ventricular hypertrophy. 5. Overall left ventricular systolic function is normal with, an EF between 55 - 60 %. 6. Normal LA size by volume 22+/-6 ml/m2. 7. RA appears enlarged. 8. Aortic valve is trileaflet and is mildly thickened. 9. There is mild aortic regurgitation. 10. The mitral valve leaflets are mildly thickened. 11. There is trace to mild mitral regurgitation. 12. Trace tricuspid regurgitation present. 13. Right ventricular systolic pressure is normal at < 35 mmHg. 14. There is no evidence of pulmonary hypertension. 15. Trace/mild (physiologic) pulmonic regurgitation. 16. The aortic root size is normal. 17. There is no pericardial effusion. TRIM MASTER OPERATOR: Danie Lewis RDCS
[2017-09-19 11:52] VITALS: BP 116/56; PULSE 57; TEMP 97.3
--- NOTE | 2017-10-07 18:42 | DS ---
DISCHARGE SUMMARY DATE OF ADMISSION: . ADMISSION DIAGNOSES: 1. Chest pain, rule out acute coronary syndrome. 2. Tobacco abuse. 3. Mild renal injury. 4. Bipolar disorder. BRIEF HISTORY: A 61-year-old patient who presented to the ED with a complaint of left-sided chest pain which is a substernal and intermittent in nature and going on for past two days. The patient becomes worse with exertion and it is mostly dull in nature. The patient also stated she had a flu-like illness about 2 weeks ago, but that completely resolved. She thought she was having another attack of the flu, but then the chest pain persisted. She decided to come to the ED. PAST MEDICAL HISTORY: 1. Chronic obstructive pulmonary disease. 2. Bipolar disorder. 3. Tobacco abuse. HOME MEDICATIONS: 1. Risperdal 30 mg q.h.s. 2. Ascorbic acid 500 q.h.s. 3. Vitamin D3 1000 mg daily. 4. Multivitamin 1 daily. 5. Vitamin B complex 1 q.h.s. PHYSICAL EXAMINATION: CONSTITUTIONAL: Patient is awake, alert, oriented x3. VITAL SIGNS: Temperature 97.6, pulse 81, respirations 16, blood pressure 88/64, O2 saturation 98% on 2 L. HEENT: Atraumatic, normocephalic. Pupils equal and react to light. Extraocular movements intact. Buccal mucosa fair. NECK: Supple. No goiter or lymphadenopathy or JVD. No carotid bruit heard. LUNGS: Clear to auscultation. No rales or wheezes. HEART: Regular rate without gallop rhythm. ABDOMEN: Soft, nontender, not distended. Bowel sounds positive. EXTREMITIES: No edema, clubbing, cyanosis. NEUROLOGICAL EXAMINATION: Patient is awake, alert, oriented x3. No gross motor or sensory deficit. Cranial 2-12 grossly intact. MUSCULOSKELETAL: Patient moves all 4 extremities. LAB: CBC: White count 10.3, hemoglobin 13.5, hematocrit 21.7, platelet count of 390. PT 9.8, INR 10.6. Chemical profile: Sodium 142, potassium 4.5, chloride 107, bicarb 20, BUN 18, creatinine 0.7. BRIEF HOSPITAL COURSE: Patient was admitted to the monitored floor. Cardiac enzymes and EKG were trending. Patient's cardiac enzymes were negative. He was scheduled for 2D echocardiogram and carotid Dopplers. Cardiology was consulted and patient was recommended heart catheterization. The patient's cardiac cath showed mild nonobstructive coronary artery disease. The patient was recommended medical postsurgical treatment and she remained stable. Chest pain free. No further changes in EKG. She remained stable. She was then discharged home in stable condition with discharge medications: Aspirin 325 mg p.o. daily, vitamin C 500 mg p.o. daily, vitamin D 3000 mg daily, Paxil 30 mg q.h.s., vitamin B complex 1 daily, Risperdal 0.5 mg q.h.s. The patient was advised to stop taking Baclofen. Glucosamine sulfate, Luetin, multivitamin with iron and folic acid, [place]-3 fatty acids, Topamax, Protonix. The patient was advised follow up with Cardiology and primary care physician as an outpatient. DISCHARGE DATE: 09/19/2017. DISCHARGE DIAGNOSES: 1. Chest pain. 2. Coronary artery disease. MMODL / IJN: [id number] /
== END 2017-09-19 13:27 | disposition home or self-care (01) ==
LOC: EC 18:19 → 3OBS 21:33 → 2CATHESU 09-18 09:38 → 3OBS 09-18 15:17
PROVIDERS: ADMIT Hospitalist; ATTEND Hospitalist
DX: R07.2 Precordial pain (principal); R07.89 Other chest pain; I25.10 Atherosclerotic heart disease of native coronary artery without angina pectoris; J44.9 Chronic obstructive pulmonary disease, unspecified; F17.200 Nicotine dependence, unspecified, uncomplicated; M54.6 Pain in thoracic spine; F31.9 Bipolar disorder, unspecified; N28.9 Disorder of kidney and ureter, unspecified; Z79.899 Other long term (current) drug therapy; Z88.0 Allergy status to penicillin
CPT/HCPCS: 99285 ×2; 36415; 93005; 93306; 93458; 83880; 80053; 82550 ×2; 82553 ×2; 83690; 83735; 84484 ×2; 85025; 85610; 85730; 71046; G0378 ×3; J2001; J2250; J1170; J3010; J1644; Q9967

== ENCOUNTER → 2018-01-16 | Outpatient (CLI) | payer MEDICARE, OTHER ==
--- NOTE | 2018-01-18 13:15 | ENG ---
ELECTRONYSTAGMOGRAM REPORT VNG REPORT VNG INDICATIONS: A 62-year-old female with vertigo, imbalance and falling for more than 7 years. The dizziness is constant. It does not come in spells. However, the patient reports that the dizziness can occur going from lying to a seated position, looking up or head back position, turning the head left or right, moving the head. She describes bilateral hearing loss, more so on the left with pain, fullness and pressure in both ears, more on the left. VNG FINDINGS: VNG findings show saccades to have intact peak velocities and accuracies with borderline latencies. Gaze with fixation shows no nystagmus in any of the directions of gaze including centrally with vision denied. Tracking is fairly smooth move. No significant breakups. Optokinetic nystagmus shows no asymmetry. Static position testing in 6 different positions with eyes opened and then with vision denied shows no nystagmus. [place]-Hallpike maneuvers are not performed due to neck pain. Caloric testing shows unilateral right caloric weakness of 26%, which is abnormal. VNG findings mild chronic well-compensated right vestibulopathy. Other features of this VNG are within normal limits. MMODL / IJN: [id number] /
== END | disposition home or self-care (01) ==
LOC: NEUROMAIN 06:44
PROVIDERS: ATTEND Otolaryngology
DX: R42 Dizziness and giddiness (principal)
CPT/HCPCS: 92537; 92540

== ENCOUNTER → 2018-11-01 | Outpatient (CLI) | payer MEDICARE ==
[2018-11-01 12:50] LABS: Basophils # (A) 0.1 k/uL (0-0.2); Basophils % (A) 1 %; Eosinophils # (A) 0.1 k/uL (0-0.7); Eosinophils % (A) 1 %; HGB 13.9 gm/dL (11.4-16.0); Lymphocytes % (A) 28 %; MCH 30.9 pg (25.0-35.0); MCHC 32.2 g/dL (31.0-37.0); MCV 95.8 fL (80.0-100.0); Monocytes # (A) 0.4 k/uL (0-1.0); Monocytes % (A) 4 %; Neutrophils % (A) 65 %; Platelet Count 325 k/uL (150-450); RBC 4.49 m/uL (3.80-5.40); RDW 13.3 % (11.5-15.5); WBC 10.8 k/uL (3.8-10.6)
--- NOTE | 2018-11-01 12:53 | XR ---
EXAMINATION TYPE: XR chest 2V DATE OF EXAM: 11/01/2018 COMPARISON: 09/17/2017 TECHNIQUE: PA and lateral views submitted. HISTORY: Elevated white count FINDINGS: Subsegmental basilar infiltrate. Hypertrophic change of the spine. No overt failure. Biapical pleural thickening. Heart size normal. IMPRESSION: 1. Bibasilar subsegmental atelectasis or infiltrate correlate clinically. A Yellow level critical message alert has been initiated for Hina Watkins MD via the [email or web address] Critical Results System on 11/01/2018 12:51 PM. This message alert has been sent to Hina mace MD via the preferences provided by the clinician for the receipt of Radiology Critical Findings. Jerry essage ID [id number].
[2018-11-01 13:23] LABS: Appearance,Urine Clear (Clear); Bilirubin,Urine Negative (Negative); Blood,Urine Moderate (Negative); Color,Urine Light Yellow; Glucose,Urine (UA) Negative (Negative); Ketones,Urine Negative (Negative); Leukocyte Esterase,Urine Negative (Negative); Nitrite,Urine Negative (Negative); PH, Urine 5.5 (5.0-8.0); Protein,Urine Negative (Negative); RBC,Urine 15 /hpf (0-5); Specific Gravity,Urine 1.008 (1.001-1.035); Squamous Epithelial Cell,Urine <1 /hpf (0-4); Urobilinogen,Urine <2.0 mg/dL (<2.0); WBC,Urine 1 /hpf (0-5)
== END | disposition home or self-care (01) ==
LOC: LABWHC1 11:49
PROVIDERS: ATTEND Family Medicine
DX: D72.829 Elevated white blood cell count, unspecified (principal)
CPT/HCPCS: 36415; 71046; 81001; 85025

== ENCOUNTER → 2018-11-06 | Outpatient (CLI) | payer MEDICARE ==
--- NOTE | 2018-11-06 14:05 | MR ---
MRI CERVICAL SPINE: CLINICAL HISTORY: Degeneration of cervical intervertebral discs per order. Headache with neck pain in to left shoulder as well as pain or weakness into left arm for 8 years per patient. TECHNIQUE: Multiplanar, multisequence imaging of the cervical spine is performed without IV contrast. COMPARISON: None. FINDINGS: Coronal images show levoconvex scoliosis centered in the upper to mid thoracic spine. Sagit luly images of the cervical spine show the craniocervical junction to appear within normal limits. Th e cervical and upper thoracic spinal cord is normal in course, caliber, and signal. There is grade 1 retrolisthesis of C5 on C6. The vertebral body heights are normal. Mild to moderate disc space narro wing C5-C6 and C6-C7 levels is present. Posterior disc herniations are seen effacing anterior thecal sac at C4-C5 through the C6-C7 levels on sagittal images. Mild anterior spurring mid to lower cervica l spine is noted. The bone marrow signal intensity is within normal limits. Axial images show the C2-C3 and C3-C4 levels to appear within normal limits. Axial images at C4-C5 level show focal right paracentral disc protrusion effacing anterolateral theca l sac axial image 28 nearly up to ventral surface of spinal cord, bilateral neural foramina are paten t. Axial images at C5-C6 level show broad-based posterior disc protrusion effacing anterior thecal sac n early up to ventral surface of spinal cord, bilateral neural foramina are patent. Axial images at C6-C7 level show broad-based posterior disc protrusion effacing anterior thecal sac o n axial image 13, bilateral neural foramina are patent. Axial images at C7-T1 level are felt within normal limits. IMPRESSION: Multilevel degenerative changes C4-C5 through C6-C7 level as detailed above. No significa nt focal left-sided neural foraminal narrowing is identified to account for patient's left-sided radi culopathy type symptoms however.
== END ==
LOC: RADMRIMAIN 12:43
PROVIDERS: ATTEND Family Medicine
DX: M48.02 Spinal stenosis, cervical region (principal); M43.12 Spondylolisthesis, cervical region; M50.221 Other cervical disc displacement at C4-C5 level; M47.812 Spondylosis without myelopathy or radiculopathy, cervical region; M41.82 Other forms of scoliosis, cervical region
CPT/HCPCS: 72141

== ENCOUNTER → 2018-11-19 | Outpatient (CLI) | payer MEDICARE ==
[2018-11-19 13:27] LABS: Basophils # (A) 0.1 k/uL (0-0.2); Basophils % (A) 1 %; Eosinophils # (A) 0.2 k/uL (0-0.7); Eosinophils % (A) 2 %; HCT 44.2 % (34.0-46.0); HGB 13.9 gm/dL (11.4-16.0); Lymphocytes # (A) 3.5 k/uL (1.0-4.8); Lymphocytes % (A) 33 %; MCH 29.7 pg (25.0-35.0); MCHC 31.4 g/dL (31.0-37.0); MCV 94.6 fL (80.0-100.0); Mean Platelet Volume 7.3; Monocytes # (A) 0.6 k/uL (0-1.0); Monocytes % (A) 5 %; Neutrophils % (A) 58 %; Platelet Count 366 k/uL (150-450); RBC 4.67 m/uL (3.80-5.40); RDW 13.3 % (11.5-15.5); WBC 10.5 k/uL (3.8-10.6)
[2018-11-19 14:42] LABS: Erythrocyte Sedimentation Rate 13 mm/hr (0-20)
== END | disposition home or self-care (01) ==
LOC: LABWHC1 12:53
PROVIDERS: ATTEND Psychiatry & Neurology Neurology
DX: G44.41 Drug-induced headache, not elsewhere classified, intractable (principal); M54.81 Occipital neuralgia; R07.9 Chest pain, unspecified; R42 Dizziness and giddiness
CPT/HCPCS: 36415; 85025; 85652; 86140

== ENCOUNTER → 2019-04-01 | Outpatient (CLI) | payer MEDICARE ==
[2019-04-01 15:58] LABS: Basophils # (A) 0.1 k/uL (0-0.2); Basophils % (A) 1 %; Eosinophils # (A) 0.2 k/uL (0-0.7); Eosinophils % (A) 2 %; HCT 44.3 % (34.0-46.0); HGB 14.1 gm/dL (11.4-16.0); Lymphocytes # (A) 4.6 k/uL (1.0-4.8); Lymphocytes % (A) 40 %; MCH 29.5 pg (25.0-35.0); MCHC 31.7 g/dL (31.0-37.0); MCV 93.1 fL (80.0-100.0); Mean Platelet Volume 7.3; Monocytes # (A) 0.5 k/uL (0-1.0); Monocytes % (A) 4 %; Neutrophils # (A) 5.8 k/uL (1.3-7.7); Neutrophils % (A) 51 %; Platelet Count 328 k/uL (150-450); RBC 4.76 m/uL (3.80-5.40); WBC 11.3 k/uL (3.8-10.6)
== END | disposition home or self-care (01) ==
LOC: LABWHC1 15:33
PROVIDERS: ATTEND Family Medicine
DX: D72.829 Elevated white blood cell count, unspecified (principal)
CPT/HCPCS: 36415; 85025

== ENCOUNTER → 2019-04-09 | Outpatient (CLI) | payer MEDICARE ==
--- NOTE | 2019-04-09 10:45 | BD ---
EXAMINATION TYPE: Axial Bone Density DATE OF EXAM: 04/09/2019 COMPARISON: NONE CLINICAL HISTORY: N 95.9 Height: 62 Weight: 155.9 FRAX RISK QUESTIONS: Alcohol (3 or more units per day): no Family History (Parent hip fracture): no Glucocorticoids (More than 3mos): no (Ex: prednisone, prednisolone, methylprednisolone, dexamethasone, and hydrocortisone). History of Fracture in Adulthood: no Secondary Osteoporosis: 1. Type 1 Diabetes: no 2. Hyperthyroidism: no 3. Menopause before 45: no 4. Malnutrition: no 5. Chronic liver disease: no Rheumatoid Arthritis: no Current Tobacco Use: yes RISK FACTORS HISTORY OF: Family History of Osteoporosis: yes Active: sometimes Diet low in dairy products/other sources of calcium: yes Postmenopausal woman: age 43 hysterectomy Lost more than 2 inches in height since high school: no MEDICATIONS: bipolar meds, muscle relaxer, cholesterol meds Additional History: EXAM MEASUREMENTS: Bone mineral densitometry was performed using the [employer] System. Bone mineral density as measured about the Lumbar spine is: ----- L1-L4(G/cm2): 0.957 T Score Values are as follows: ----- L2: -1.8 ----- L3: -2.0 ----- L4: -2.3 ----- L1-L4: -1.9 Bone mineral density : baseline Bone mineral density about the R hip (g/cm2): 0.671 Bone mineral density about the L hip (g/cm2): 0.694 T Score values are as follows: -----R Neck: -2.6 -----L Neck: -2.5 -----R Total: -2.3 -----L Total: -1.9 Bone mineral density : baseline IMPRESSION: Osteoporosis (T Score less than -2.5). There is increased fracture risk and therapy is usually indicated based on age. Re-Screen 1-2 years. NOTE: T-SCORE=SD OF THE YOUNG ADULT MEAN.
== END | disposition home or self-care (01) ==
LOC: RADBDWWP 09:50
PROVIDERS: ATTEND Family Medicine
DX: M81.0 Age-related osteoporosis without current pathological fracture (principal)
CPT/HCPCS: 77080

== ENCOUNTER → 2019-04-21 | Outpatient (CLI) | payer MEDICARE ==
[2019-04-21 12:45] LABS: Basophils # (A) 0.1 k/uL (0-0.2); Basophils % (A) 1 %; Eosinophils # (A) 0.2 k/uL (0-0.7); Eosinophils % (A) 2 %; HCT 41.6 % (34.0-46.0); HGB 13.9 gm/dL (11.4-16.0); Lymphocytes # (A) 3.3 k/uL (1.0-4.8); Lymphocytes % (A) 33 %; MCH 30.4 pg (25.0-35.0); MCHC 33.5 g/dL (31.0-37.0); MCV 90.8 fL (80.0-100.0); Mean Platelet Volume 7.5; Monocytes # (A) 0.6 k/uL (0-1.0); Monocytes % (A) 6 %; Neutrophils # (A) 5.8 k/uL (1.3-7.7); Neutrophils % (A) 58 %; Platelet Count 316 k/uL (150-450); RBC 4.59 m/uL (3.80-5.40); RDW 14.5 % (11.5-15.5)
== END | disposition home or self-care (01) ==
LOC: LABWHC1 11:43
PROVIDERS: ATTEND Family Medicine
DX: D72.829 Elevated white blood cell count, unspecified (principal)
CPT/HCPCS: 36415; 85025

== ENCOUNTER → 2019-05-01 | Outpatient (CLI) | payer MEDICARE ==
[2019-05-01 13:53] LABS: Basophils # (A) 0.1 k/uL (0-0.2); Basophils % (A) 1 %; Eosinophils # (A) 0.2 k/uL (0-0.7); Eosinophils % (A) 1 %; HCT 45.6 % (34.0-46.0); HGB 14.6 gm/dL (11.4-16.0); Lymphocytes # (A) 4.1 k/uL (1.0-4.8); Lymphocytes % (A) 27 %; MCH 29.4 pg (25.0-35.0); MCV 91.9 fL (80.0-100.0); Mean Platelet Volume 7.4; Monocytes # (A) 0.6 k/uL (0-1.0); Monocytes % (A) 4 %; Neutrophils # (A) 10.3 k/uL (1.3-7.7); Neutrophils % (A) 66 %; Platelet Count 331 k/uL (150-450); RBC 4.96 m/uL (3.80-5.40); RDW 14.8 % (11.5-15.5); WBC 15.5 k/uL (3.8-10.6)
== END | disposition home or self-care (01) ==
LOC: LABWHC1 13:05
PROVIDERS: ATTEND Family Medicine
DX: D72.829 Elevated white blood cell count, unspecified (principal)
CPT/HCPCS: 36415; 85025

== ENCOUNTER → 2019-05-23 | Outpatient (CLI) | payer MEDICARE ==
--- NOTE | 2019-05-23 15:51 | MR ---
EXAMINATION TYPE: MR brain wo con DATE OF EXAM: 05/23/2019 COMPARISON: 09/01/2016 CT HISTORY: Left side weakness/Sequelae of cerebral infarction / CVA CONTRAST: Performed utilizing 0 mL intravenous Gadavist gadolinium contrast. TECHNIQUE: Multiplanar, multiecho imaging on a 3.0 Cee magnet is performed through the brain. Stud y is performed within 24 hours of arrival to the hospital. The craniovertebral junction is normal. The pituitary is normal. Diffusion-weighted imaging is performed. No abnormal hyperintensity is present to suggest an acute i ntracranial infarct or acute ischemic change. There is increased signal within the brainstem. Some mild. White matter hyperintensity is present. Th ere are scattered subcortical and deep white matter changes present bilaterally. Findings are nonspec ific but can be related to microvascular ischemic change among other etiologies. Ventricles and sulci are appropriate for the patient age. IMPRESSIONS: 1. Periventricular and deep white matter ischemic type changes. 2. No suspicious changes to suggest recent acute ischemic change.
== END | disposition home or self-care (01) ==
LOC: RADMRIMAIN 15:15
PROVIDERS: ATTEND Psychiatry & Neurology Neurology
DX: I67.82 Cerebral ischemia (principal)
CPT/HCPCS: 70551

== ENCOUNTER → 2020-07-30 | Outpatient (CLI) | payer MEDICARE ==
--- NOTE | 2020-07-30 13:47 | CT ---
EXAMINATION TYPE: CT sinus wo con DATE OF EXAM: 07/30/2020 COMPARISON: MRI brain May 23, 2019. CT brain September 01, 2016. HISTORY: sinusitis, Lt sided facial pain CT DLP: 577 mGycm. Automated Exposure Control for Dose Reduction was Utilized. TECHNIQUE: CT scan of the sinuses is performed without contrast, axial images are obtained, coronal r eformatted images are also reviewed. FINDINGS: The paranasal sinuses including the frontal, ethmoid, sphenoid, and maxillary sinuses bila terally are well-aerated without abnormal opacification. The ostiomeatal complex is patent bilateral ly on coronal image 24. Nasal septum remains midline. Visualized portion of mastoid air cells show no abnormal opacification. The globes are intact bilate rally. Visualized brain parenchyma is unremarkable. IMPRESSION: The sinuses remain clear and the ostiomeatal complex remains patent bilaterally.
--- NOTE | 2020-07-30 14:33 | US ---
EXAMINATION TYPE: US carotid duplex BILAT DATE OF EXAM: 07/30/2020 COMPARISON: NONE CLINICAL HISTORY: H53.9 VISUAL DISTURBANCE. EXAM MEASUREMENTS: RIGHT: Peak Systolic Velocity (PSV) cm/sec ----- Right CCA: 58.6 ----- Right ICA: 74.3 ----- Right ECA: 79.5 ICA/CCA ratio: 1.3 RIGHT: End Diastole cm/sec ----- Right CCA: 18.0 ----- Right ICA: 34.4 ----- Right ECA: 16.1 LEFT: Peak Systolic Velocity (PSV) cm/sec ----- Left CCA: 71.6 ----- Left ICA: 119.0 ----- Left ECA: 85.4 ICA/CCA ratio: 1.7 LEFT: End Diastole cm/sec ----- Left CCA: 23.6 ----- Left ICA: 41.4 ----- Left ECA: 22.2 VERTEBRALS (direction of flow): Right Vertebral: Antegrade Left Vertebral: Antegrade Rhythm: Normal [place] scale images show no significant focal plaque or stenosis at the carotid bulb level bilaterally. IMPRESSION: No hemodynamically significant stenosis is seen in either internal carotid artery . Criteria for Assigning % of Stenosis / Diameter reduction (Estimation based on the indirect measurements of the internal carotid artery velocities (ICA PSV). 1. Normal (no stenosis)=ICA PSV < 125 cm/s: ratio < 2.0: ICA EDV<40 cm/s. 2. Less than 50% stenosis=ICA PSV < 125 cm/s: ratio < 2.0: ICA EDV<40 cm/s. 3. 50 to 69% stenosis=ICA PSV of 125 to 230 cm/s: ration 2.0 ? 4.0: ICA EDV 40-100 cm/s. 4. Greater than 70% stenosis to near occlusion= ICA PSV > 230 cm/s: ratio > 4.0: ICA EDV > 100 cm/s. 5. Near occlusion= ICA PSV velocities may be low or undetectable: variable ratio and ICA EDV. 6. Total occlusion=unable to detect flow.
== END | disposition home or self-care (01) ==
LOC: RADCTMAIN 13:05
PROVIDERS: ATTEND Family Medicine
DX: J32.9 Chronic sinusitis, unspecified (principal); H53.9 Unspecified visual disturbance
CPT/HCPCS: 70486; 93880

== ENCOUNTER → 2020-09-17 | Outpatient (CLI) | payer MEDICARE ==
--- NOTE | 2020-09-17 14:22 | EST ---
EXERCISE STRESS AGE: 64 SEX: Female HT: 5'2" WT: 157 lbs. PROTOCOL: Tristen STAGE: 2 DURATION OF EXERCISE: 3 minutes 27 seconds HEART RATE REST: 64 BLOOD PRESSURE REST: 113/82 MAXIMUM HEART RATE ACHIEVED: 119 MAXIMUM BLOOD PRESSURE: 151/89 85% MPHR: 131 100% MPHR: 154 METS: 4.6 INDICATIONS: Chest pain. CLINICAL INFORMATION: Baseline rhythm is a sinus mechanism, rate of 64, normal axis and intervals, normal electrocardiogram. Baseline blood pressure 113/82 mmHg. Patient exercised on Tristen protocol for 3 minutes 27 seconds reaching peak rate 119 beats per minute which is equal 77% maximum predicted heart rate. Peak blood pressure 151/89 mmHg. Test was terminated secondary to fatigue. There was no chest pain. Electrocardiograph monitoring revealed no evidence of diagnostic ischemic ST deviation. CONCLUSION: 1. Decreased exercise tolerance. 2. Nondiagnostic electrocardiograph stress testing secondary to the inability to achieve 85% maximum predicted heart rate. 3. If clinically indicated a pharmacological imaging stress test will be helpful. MMODL / IJN: [id number] /
== END | disposition home or self-care (01) ==
LOC: RADNMMAIN 10:29
PROVIDERS: ATTEND Family Medicine
DX: R07.89 Other chest pain (principal)
CPT/HCPCS: 93017

== ENCOUNTER → 2022-07-14 | Outpatient (CLI) | payer MEDICARE ==
--- NOTE | 2022-07-14 12:12 | BD ---
EXAMINATION TYPE: Axial Bone Density DATE OF EXAM: 07/14/2022 COMPARISON: 04/09/2019 CLINICAL HISTORY: 66 years year old Female. ICD-10 CODE: M81.0 age-related osteoporosis w/o patholog ical fracture Height: 61 IN Weight: 155 LBS FRAX RISK QUESTIONS: 4. Malnutrition: YES YURY Current Tobacco Use: YES RISK FACTORS HISTORY OF: Family History of Osteoporosis: YES MOTHER Active: YES Diet low in dairy products/other sources of calcium: YES Postmenopausal woman: TOTAL HYST AGE 43 Take estrogen and/or progesterone medications: NOT NOW How long: TOOK CONTROL FOR 1 YEAR MEDICATIONS: Additional Medications: MULTI VIT, GLUCOSAMINE, FISH OIL EXAM MEASUREMENTS: Bone mineral densitometry was performed using the [email or web address] System. Bone mineral density as measured about the Lumbar spine is: ----- L1-L4(G/cm2): 0.911 T Score Values are as follows: ----- L1: -2.0 ----- L2: -2.4 ----- L3: -1.7 ----- L4: -3.0 ----- L1-L4: -2.2 Bone mineral density has: Decreased -4.2% since study of: 04/09/2019 Bone mineral density about the R hip (g/cm2): 0.641 Bone mineral density about the L hip (g/cm2): 0.677 T Score values are as follows: -----R Neck: -2.9 -----L Neck: -2.6 -----R Total: -2.5 -----L Total: -2.1 Bone mineral density has: Decreased -3.4% since study of: 04/09/2019 FRAX%s: The graph provided illustrates a 9.4 chance for a major osteoporotic fx and a 5.1 chance for the hips probability for fx in 10 years time. IMPRESSION: Osteoporosis (T Score less than -2.5). There is increased fracture risk and therapy is usually indicated based on age. Re-Screen 1-2 years. NOTE: T-SCORE=SD OF THE YOUNG ADULT MEAN.
== END | disposition home or self-care (01) ==
LOC: RADBDWWP 11:15
PROVIDERS: ATTEND Family Medicine
DX: M81.0 Age-related osteoporosis without current pathological fracture (principal); Z78.0 Asymptomatic menopausal state
CPT/HCPCS: 77080

== ENCOUNTER → 2022-12-21 | Outpatient (CLI) | payer MEDICARE ==
--- NOTE | 2022-12-21 13:24 | CT ---
EXAMINATION TYPE: CT chest wo con DATE OF EXAM: 12/21/2022 COMPARISON: None HISTORY: Cough CT DLP: 647.9 mGycm. Automated Exposure Control for Dose Reduction was Utilized. TECHNIQUE: CT scan of the thorax is performed without IV contrast. FINDINGS: LUNGS: The lungs are grossly clear, there is no concerning parenchymal mass or nodule identified. T here is no pleural effusion or pneumothorax seen. The tracheobronchial tree is patent. There is biap ical pleural thickening with groundglass density likely on the basis of atelectasis. There is interlo bular septal thickening throughout both lungs involving the upper and lower lobes with the honeycomb formation compatible with advanced interstitial pulmonary fibrosis UIP. MEDIASTINUM: Lack of IV contrast is noted to limit evaluation for mediastinal and especially hilar ad enopathy. There are no definitive greater than 1 cm hilar or mediastinal lymph nodes. Heart is enlarg ed and there is coronary artery calcification. OTHER: There is a hypodensity within the left kidney measuring 9 Hounsfield units and 3.8 cm suggesti ve of a simple cyst. Tiny hypodensity posterior lobe segment right of the liver. 2 small to character ize but most likely on the basis of a tiny cyst. Lobulated attenuation of bilateral thyroid greater o n the right. IMPRESSION: 1. There is honeycombing along the peripheral margin of the upper and lower lobes bilaterally compati ble with moderate to severe interstitial pulmonary fibrosis UIP type. 2. Cardiomegaly and coronary artery calcification. 3. Suspected right-sided thyroid nodules recommend ultrasound of thyroid
== END | disposition home or self-care (01) ==
LOC: RADCTMAIN 12:20
PROVIDERS: ATTEND Internal Medicine Critical Care Medicine
DX: I25.10 Atherosclerotic heart disease of native coronary artery without angina pectoris (principal); I51.7 Cardiomegaly; J84.9 Interstitial pulmonary disease, unspecified
CPT/HCPCS: 71250

== ENCOUNTER → 2023-12-07 | Outpatient (CLI) | payer MEDICARE ==
--- NOTE | 2023-12-07 19:06 | CT ---
EXAMINATION TYPE: CT chest wo con CT DLP: 557.6 mGycm, Automated exposure control for dose reduction was used. DATE OF EXAM: 12/07/2023 5:28 PM COMPARISON: 12/21/2022 CLINICAL INDICATION:Female, 68 years old with history of [id number] PULMONARY FIBROSIS, UNSPECIFIED; PHH, pulmonary fibrosis TECHNIQUE: Multiple thin axial images were obtained through the chest at selected intervals. Prone an d supine inspiratory along with supine expiratory images were submitted for review. Please note that due to interval acquisition images as defined by high-resolution CT protocol the entire lung parenchy ma is not evaluated, therefore small nodular densities may not be visualized. Evaluation of vascular structures, viscera and lymphatics is limited due to lack of intravenous contrast administration. Co ntrast used: mL of (None if empty) Oral contrast used: (None if empty) FINDINGS: LUNGS: Peripheral reticulation architectural distortion most pronounced along the anterior upper sudha pheral lung and the posterior lower lung. There is no honeycombing, specifically no stacking peripher al cysts along the periphery identified. With relative sparing of the midportion of the lungs bilater ally. No bronchiectasis. No acute area of infiltrative or consolidative change. LARGE AIRWAYS: Central airways are patent. PLEURA: No pleural effusion or thickening. HEART: Size within normal limits. MEDIASTINUM: No gross evidence of adenopathy. VASCULATURE: No aortic aneurysm. MUSCULOSKELETAL: No acute osseous abnormalities SOFT TISSUES/LYMPH NODES: Unremarkable. LOWER NECK: No significant findings. UPPER ABDOMEN: Left renal cysts noted. IMPRESSION: Peripheral reticulation with minimal cystic change without definitive honeycombing at this time. Find ings could represent sequela prior infections. This is not typical distribution of pulmonary fibrosis or Findings not significantly changed from prior. Continued yearly surveillance recommended.
== END | disposition home or self-care (01) ==
LOC: RADCTMAIN 16:10
PROVIDERS: ATTEND Internal Medicine Critical Care Medicine
DX: J84.10 Pulmonary fibrosis, unspecified (principal)
CPT/HCPCS: 71250